=== PATIENT | female | born 1950 | race Caucasian/White ===

== ENCOUNTER 2024-04-03 14:32 | Outpatient (CLI) | payer MEDICARE | END 2024-04-03 14:33 | disposition home or self-care (01) | LOC: CSHMRI 14:32 | PROVIDERS: ATTEND Family Medicine Sports Medicine | DX: M54.16 Radiculopathy, lumbar region (principal); M48.061 Spinal stenosis, lumbar region without neurogenic claudication | CPT/HCPCS: 72148 ==